=== PATIENT | female | born 1950 | race Two or more races ===

== ENCOUNTER 2017-02-06 18:23 | Emergency (ER) | payer MEDICARE, MEDICAID ==
[~2017-02-06] VITALS: Ht 160 cm; Wt 50.0 kg
[2017-02-06 19:28] LABS: HEMATOCRIT 38.3 % (34.6-47.8); WHITE BLOOD COUNT 7.5 x10^3/uL (3.4-10)
[2017-02-06 19:31] LABS: BLOOD UREA NITROGEN 16 mg/dL (7-18)
[2017-02-06 19:45] LABS: IS PT STATUS REG ER OR PRE ER? YES
[2017-02-06] MEDS ORDERED: SODIUM CHLORIDE FLUSH 10ML SYR IVF ONE (20:00)
[2017-02-06] MEDS ORDERED: PLEASE ENTER ALLERGIES MC SCH ×2 (20:00)
[2017-02-06] MEDS ORDERED: SODIUM CHLORIDE 0.9% 1,000ML IVBOLUS ONE (20:00)
[2017-02-06 20:45] VITALS: BP 164/77
== END 2017-02-06 21:04 | disposition home or self-care (01) ==
LOC: ED 20:50
DX: E86.0 Dehydration (principal); R42 Dizziness and giddiness
CPT/HCPCS: 36415; 71010; 80048; 82040; 83880; 84484; 85025; 93005; 96360; 99285; J7030

== ENCOUNTER 2019-12-08 17:03 | Emergency (ER) | payer MEDICARE, MEDICAID ==
[~2019-12-08] VITALS: Ht 157.5 cm; Wt 43.0 kg
[2019-12-08 17:11] VITALS: BP 126/70
--- NOTE | 2019-12-08 17:14 | NUR ---
PT PLACED IN GOWN IN BED. CALL LIGHT IN REACH. MEAL TRAY ORDERED.
--- NOTE | 2019-12-08 17:29 | NUR ---
PT PROVIDED WITH A MEAL TRAY. DENIES ANY FURTHER NEEDS OR CONCERNS AT THIS TIME, CALL LIGHT IN REACH.
--- NOTE | 2019-12-08 18:03 | NUR ---
TASK RN: TAXI VOUCHER PROVIDED FOR PT. DISCUSSED DC PAPERWORK. ALL QUESTIONS ANSWERED.
== END 2019-12-08 18:04 | disposition home or self-care (01) ==
LOC: ED 17:35
DX: R42 Dizziness and giddiness (principal); Z72.9 Problem related to lifestyle, unspecified
CPT/HCPCS: 99283